=== PATIENT | female | born 1955 | race Caucasian/White ===

== ENCOUNTER 2021-11-22 14:41 | Emergency (ER) | payer MEDICARE, BC ==
[~2021-11-22] VITALS: Ht 167.6 cm; Wt 72.7 kg
== END 2021-11-22 20:58 | disposition home or self-care (01) ==
LOC: ER 14:42
DX: M79.605 Pain in left leg (principal); Z98.890 Other specified postprocedural states
CPT/HCPCS: 93971; 99284